=== PATIENT | female | born 1980 | race Caucasian/White ===

== ENCOUNTER 2017-02-07 12:11 | Emergency (ER) | payer MEDICAID ==
[2017-02-07] MEDS ORDERED: HYDROcod/ACETAM 5/325 MG TABLET PO STA (12:51)
[2017-02-07] MEDS ORDERED: diazePAM 5 MG TABLET PO STA (12:52)
[2017-02-07] MEDS ORDERED: diazePAM 5 MG TABLET PO ONE (12:56)
[2017-02-07] MEDS ORDERED: HYDROcod/ACETAM 5/325 MG TABLET ONE (12:56)
== END 2017-02-07 13:08 | disposition home or self-care (01) ==
DX: M54.5 Low back pain (principal); G89.29 Other chronic pain
CPT/HCPCS: 99283; A9270

== ENCOUNTER 2017-05-03 19:08 | Emergency (ER) | payer MEDICAID ==
[2017-05-03] MEDS ORDERED: HYDROcod/ACETAM 5/325 MG TABLET PO STA (19:39)
--- NOTE | 2017-05-03 19:40 | ED Physician Documentation ---
History of Present Illness - Stated complaint Stated Complaint: LT FOOT PX - Chief complaint Chief Complaint: General - History obtained from History obtained from: Patient - History of Present Illness Timing: Other (36-year-old woman stubbed her toe this evening and is unable to walk due to severe left great toe pain. No other injuries. 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 HEENT: Tonsil/Adenoidectomy - Present Medications Home Medications: Ambulatory Orders Medication Instructions Recorded Confirmed HYDROcod/ACETAM 5/325 [[place] 5/325] 1 tab PO TID PRN 08/17/15 05/03/17 - Allergies Allergies/Adverse Reactions: Allergies Allergy/AdvReac Type Severity Reaction Status Date / Time levofloxacin [From Levaquin] Allergy Unknown Verified 05/03/17 19:32 morphine Allergy Unknown Verified 05/03/17 19:32 - Social History Does the pt smoke?: No Smoking Status: Never smoker Does the pt drink ETOH?: No Does the pt have substance abuse?: Yes Substance Use and Type: Marijuana - Immunizations Immunizations are current?: Yes PD ED PE NORMAL - Vitals Vital signs reviewed: Yes - General General: Alert and oriented X 3, No acute distress - Extremities Extremities: Other (Quite tender to the MTP of the great toe without deformity. MVI.) - Neuro Neuro: Alert and oriented X 3, Normal speech - Psych Psych: Normal mood, Normal affect Results - Vitals Vitals: Vital Signs - 24 hr 05/03/17 19:12 Temperature 36.4 C L Heart Rate 84 Respiratory 16 Rate Blood Pressure 108/71 O2 Saturation 100 Oxygen O2 Source Room air - Rads (name of study) Toe XR Radiology: EMP read contemporaneously (negative) Departure - Departure Disposition: 01 Home, Self Care Clinical Impression: Sprain of toe, great, left Qualifiers: Encounter type: initial encounter Qualified Code(s): S93.502A - Unspecified sprain of left great toe, initial encounter Condition: Good Record reviewed to determine appropriate education?: Yes Instructions: ED Sprain Toe Comments: Recheck with your physician in 1 week if not better Forms: Activity restrictions
[2017-05-03] MEDS ORDERED: HYDROcod/ACETAM 5/325 MG TABLET ONE (19:41)
--- NOTE | 2017-05-03 20:16 | XRAY Preliminary Report ---
Exam: XR Toe(s) LT IMPRESSION: Normal toe radiography. [facility] SITE ID: [id number]
--- NOTE | 2017-05-03 20:19 | XRAY Report ---
EXAM: LEFT FIRST TOE RADIOGRAPHY EXAM DATE: 05/03/2017 08:08 PM. CLINICAL HISTORY: Toe inj. COMPARISON: None. TECHNIQUE: 3 views. FINDINGS: Bones: Normal. No fracture or bone lesion. Joints: Normal. No subluxations. Soft Tissues: Normal. No soft tissue swelling. IMPRESSION: Normal toe radiography. [facility] Referring Provider Line: [phone] SITE ID: [id number]
[2017-05-03] MEDS ORDERED: HYDROcod/ACET 5/325 Prepack 6 PO STA (20:28)
[2017-05-03] MEDS ORDERED: HYDROcod/ACET 5/325 Prepack 6 PO ONE (20:44)
[2017-05-03 20:53] VITALS: BP 101/69
== END 2017-05-03 20:47 | disposition home or self-care (01) ==
LOC: ED 19:08
DX: S93.502A Unspecified sprain of left great toe, initial encounter (principal); W22.8XXA Striking against or struck by other objects, initial encounter
CPT/HCPCS: 73660; 99283; A9270

== ENCOUNTER 2017-11-08 12:40 | Emergency (ER) | payer MEDICAID ==
[2017-11-08 12:53] VITALS: BP 116/67
--- NOTE | 2017-11-08 13:18 | ED Physician Documentation ---
PD HPI NECK PAIN - Stated complaint Stated Complaint: NECK PX - Chief complaint Chief Complaint: General - History obtained from History obtained from: Patient - History of Present Illness Timing - onset: Yesterday Timing - duration: Days (2) Timing - details: Gradual onset, Still present Location: Lower, Left Quality: Pain, Spasm Associated symptoms: Numbness (intermittently left back of arm to middle fingers. no edema.). No: Fever, Weakness, Incontinent of urine Worsened by: Movement (of neck and shoulder) Similar symptoms before: Diagnosis (neck pain from disc disease. Worse the past 2 days without obvius new injury.) Review of Systems Constitutional: denies: Fever, Chills Nose: denies: Rhinorrhea / runny nose, Congestion Throat: denies: Sore throat Respiratory: denies: Cough Skin: denies: Rash, Lesions Neurologic: reports: Numbness (at time down left arm/fingers). 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 HEENT: Tonsil/Adenoidectomy - Present Medications Home Medications: Ambulatory Orders Medication Instructions Recorded Confirmed HYDROcod/ACETAM 5/325 [[place] 5/325] 1 tab PO TID PRN 08/17/15 05/03/17 Methocarbamol [Robaxin] 500 mg PO Q6H PRN #25 tablet 11/08/17 Naproxen 375 mg PO BID #20 tablet 11/08/17 Oxycodone HCl/Acetaminophen 1 each PO Q6H PRN #20 tablet 11/08/17 [Percocet 5-325 mg Tablet] - Allergies Allergies/Adverse Reactions: Allergies Allergy/AdvReac Type Severity Reaction Status Date / Time levofloxacin [From Levaquin] Allergy Unknown Verified 11/08/17 12:53 morphine Allergy Unknown Verified 11/08/17 12:53 - Social History Does the pt smoke?: No Smoking Status: Never smoker Does the pt drink ETOH?: No Does the pt have substance abuse?: Yes - Immunizations Immunizations are current?: No PD ED PE NORMAL - Vitals Vital signs reviewed: Yes - General General: Alert and oriented X 3, Well developed/nourished - Neck Neck: Supple, no meningeal sign, No bony TTP, No adenopathy, Other (tender left lateral neck in muscle and in suprascapular area (trapezius muscle with firm spasm). No redness nor sores of skin. ) - Cardiac Cardiac: RRR, No murmur - Respiratory Respiratory: Clear bilaterally - Derm Derm: Normal color, Warm and dry, No rash - Neuro Neuro: Alert and oriented X 3, No motor deficit, Other (subjective less sensation to touch in left hand middle fingers. Normal color and cap refill. ) Results - Vitals Vitals: Vital Signs - 24 hr 11/08/17 12:51 Temperature 36.4 C L Heart Rate 74 Respiratory 20 Rate Blood Pressure 116/67 O2 Saturation 98 Oxygen O2 Source Room air PD MEDICAL DECISION MAKING - ED course Complexity details: considered differential (neck pain with some decreased sensation left arm but no weakness. Muscle spasm of trapezius could be causing it rather than disc. Did trigger point injection with Marcaine and Kenalog at point of muscle spasm mid suprascapular area. Otherwise no red flags for history. ), d/w patient Departure - Departure Disposition: 01 Home, Self Care Clinical Impression: Neck pain on left side, Trapezius muscle spasm, Cervical radiculitis Condition: Stable Record reviewed to determine appropriate education?: Yes Instructions: ED Neck Pain No Trauma, ED Cervical Radiculopathy Follow-Up: Erum Mercado ARNP [Primary Care Provider] - Prescriptions: Methocarbamol [Robaxin] 500 mg PO Q6H PRN #25 tablet PRN Reason: Spasms Naproxen 375 mg PO BID #20 tablet Oxycodone HCl/Acetaminophen [Percocet 5-325 mg Tablet] 1 each PO Q6H PRN #20 tablet PRN Reason: Pain Comments: Heat and gentle massage to the area to reduce spasming on the left side of the neck. Use naproxen twice daily for the next 7-10 days; take it with food so it does not bother her stomach. Use Robaxin muscle relaxant 3-4 times a day as needed for spasms. Hopefully the local injection with steroid and numbing medicine will decrease as spasm in reduce irritation. Add oxycodone if needed for pain. The "pinched nerve" symptoms may be coming from the discs themselves or could be from inflammation and muscle spasm as well. See how much that improves over the next several days to week or so. Follow-up with your primary care. Discharge Date/Time: 11/08/17 14:13
[2017-11-08] MEDS ORDERED: oxyCOD/ACETAMIN 5 MG/325 MG TABLET PO STA (13:23)
[2017-11-08] MEDS ORDERED: METHOCARBAMOL 500 MG TABLET PO STA (13:23)
[2017-11-08] MEDS ORDERED: IBUPROFEN 600 MG TABLET PO STA (13:23)
[2017-11-08] MEDS ORDERED: TRIAMCINOLONE 40 MG/ML VIAL IM STA (13:23)
== END 2017-11-08 14:13 | disposition home or self-care (01) ==
LOC: ED 12:40
DX: M54.2 Cervicalgia (principal); M62.838 Other muscle spasm; M54.12 Radiculopathy, cervical region
CPT/HCPCS: 96372; 99283; A9270

== ENCOUNTER 2017-11-16 12:24 | Emergency (ER) | payer MEDICAID ==
[2017-11-16] MEDS ORDERED: KETOROLAC 60 MG/2 ML VIAL IM STA (13:10)
[2017-11-16] MEDS ORDERED: LIDOCAINE PATCH 5% TOP STA (13:10)
[2017-11-16] MEDS ORDERED: HYDROcod/ACETAM 5/325 MG TABLET PO STA (13:10)
[2017-11-16 13:52] VITALS: BP 106/62
--- NOTE | 2017-11-16 14:11 | ED Physician Documentation ---
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, chronic slight numbness Leon bowden today was leaning over to stretch and coughed and aggravated the pain to her lower neck and upper back with spasm no new neuro sx pain is severe took her valium but not her vicodin Review of Systems Constitutional: denies: Fever Cardiac: denies: Chest pain / pressure GI: denies: Abdominal Pain Musculoskeletal: reports: Neck pain, Back pain Neurologic: denies: Focal weakness, Numbness (none new) PD PAST MEDICAL HISTORY - Past Medical History Past Medical History: Yes Cardiovascular: None Respiratory: None Neuro: None Endocrine/Autoimmune: None : Kidney stones Musculoskeletal: Chronic back pain - Past Surgical History 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, 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 HEENT: Tonsil/Adenoidectomy - Present Medications Home Medications: Ambulatory Orders Medication Instructions Recorded Confirmed HYDROcod/ACETAM 5/325 [[place] 5/325] 1 tab PO TID PRN 08/17/15 11/16/17 Diazepam [Valium] 1 tab PO BID 11/16/17 11/16/17 Ibuprofen [Motrin] 400 mg PO Q6H PRN #30 tablet 11/16/17 Lidocaine Patch 5% [Lidoderm Patch] 1 each TOP DAILY PRN #10 patch 11/16/17 - Allergies Allergies/Adverse Reactions: Allergies Allergy/AdvReac Type Severity Reaction Status Date / Time levofloxacin [From Levaquin] Allergy Unknown Verified 11/08/17 12:53 morphine Allergy Unknown Verified 11/08/17 12:53 - Social History Does the pt smoke?: No Smoking Status: Never smoker Does the pt drink ETOH?: No Does the pt have substance abuse?: Yes - Immunizations Immunizations are current?: No - POLST Patient has POLST: No PD ED PE NORMAL - Vitals Vital signs reviewed: Yes - Neck Neck: Supple, no meningeal sign, Other (soft tissue TTP lower neck no focal redness swelling warmth) - Cardiac Cardiac: RRR - Respiratory Respiratory: No respiratory distress, Clear bilaterally - Back Back: No spinal TTP (no focal redness swelling warmth) - Derm Derm: Normal color - Neuro Neuro: Alert and oriented X 3, clock assembler 2-12 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, No motor deficit, No sensory deficit Results - Vitals Vitals: Vital Signs - 24 hr 11/16/17 11/16/17 12:49 13:51 Temperature 36.8 C 37.0 C Heart Rate 86 70 Respiratory 20 20 Rate Blood Pressure 116/78 106/62 O2 Saturation 97 98 Oxygen O2 Source Room air PD MEDICAL DECISION MAKING - ED course ED course: better with toradol and lido patches to low neck region Departure - Departure Disposition: Home, Self Care Clinical Impression: Trapezius muscle spasm, Neck pain Back pain Qualifiers: Back pain location: back pain in other location Chronicity: chronic Qualified Code(s): M54.9 - Dorsalgia, unspecified; G89.29 - Other chronic pain; G89.29 - Other chronic pain Condition: Good Instructions: ED Neck Back Pain General Prescriptions: Ibuprofen [Motrin] 400 mg PO Q6H PRN #30 tablet PRN Reason: Pain Lidocaine Patch 5% [Lidoderm Patch] 1 each TOP DAILY PRN #10 patch PRN Reason: Pain Comments: Try the lidocaine patches and motrin Continue your valium and vicodin as needed for severe pain
== END 2017-11-16 14:18 | disposition home or self-care (01) ==
LOC: ED 12:24
DX: M62.838 Other muscle spasm (principal); M54.2 Cervicalgia; G89.29 Other chronic pain
CPT/HCPCS: 96372; 99283; A9270

== ENCOUNTER 2018-01-03 18:23 | Emergency (ER) | payer MEDICAID ==
--- NOTE | 2018-01-03 20:38 | ED Physician Documentation ---
History of Present Illness - Stated complaint Stated Complaint: BACK PX - Chief complaint Chief Complaint: General - History obtained from History obtained from: Patient, Family - History of Present Illness Timing: Chronic Pain level max: 8 Pain level now: 6 Improved by: rest Worsened by: movement - Additonal information Additional information: States has chronic back pain. Dx with degenerative disk disease several years ago. States normally the hydrocodone controls her pain, but has had increased pain over the past few days. She has no loss of bowel or bladder control. No fevers. No trauma. Has required oxycodone in the past. Toradol has also helped in the past. Review of Systems Ten Systems: 10 systems reviewed and negative Constitutional: denies: Fever, Chills Ears: denies: Ear pain Nose: denies: Rhinorrhea / runny nose, Congestion Cardiac: denies: Chest pain / pressure Respiratory: denies: Cough, Wheezing GI: denies: Abdominal Pain, Nausea, Vomiting, Diarrhea : denies: Now EGA Skin: denies: Rash Musculoskeletal: denies: Neck pain Neurologic: denies: Focal weakness, Numbness PD PAST MEDICAL HISTORY - Past Medical History Past Medical History: Yes Cardiovascular: None Respiratory: None Neuro: None Endocrine/Autoimmune: None : Kidney stones Musculoskeletal: Chronic back pain - Past Surgical 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, 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 HEENT: Tonsil/Adenoidectomy - Present Medications Home Medications: Ambulatory Orders Medication Instructions Recorded Confirmed HYDROcod/ACETAM 5/325 [[place] 5/325] 1 tab PO TID PRN 08/17/15 11/16/17 Diazepam [Valium] 1 tab PO BID 11/16/17 11/16/17 Meloxicam [Mobic] 15 mg PO DAILY PRN #20 tablet 01/03/18 Oxycodone HCl/Acetaminophen 1 - 2 each PO Q6H PRN #14 tablet 01/03/18 [Percocet 5-325 mg Tablet] - Allergies Allergies/Adverse Reactions: Allergies Allergy/AdvReac Type Severity Reaction Status Date / Time levofloxacin [From Levaquin] Allergy Unknown Verified 11/08/17 12:53 morphine Allergy Unknown Verified 01/03/18 18:31 - Social History Does the pt smoke?: No Smoking Status: Never smoker Does the pt drink ETOH?: No Does the pt have substance abuse?: Yes - Immunizations Immunizations are current?: No - POLST Patient has POLST: No PD ED PE NORMAL - Vitals Vital signs reviewed: Yes - General General: Alert and oriented X 3, No acute distress - HEENT HEENT: Moist mucous membranes - Neck Neck: Supple, no meningeal sign - Cardiac Cardiac: RRR - Respiratory Respiratory: No respiratory distress, Clear bilaterally - Abdomen Abdomen: Soft, Non tender, Non distended - Back Back: No spinal TTP, Other (Paraspinal spasm low lumbar. No midline tenderness. No tenderness to palpation or percussion midline) - Derm Derm: Warm and dry - Extremities Extremities: Normal ROM s pain, Other (normal bilateral lower extremity patellar and ankle jerk reflexes. Normal great toe extension bilaterally) - Neuro Neuro: Alert and oriented X 3 - Psych Psych: Normal mood, Normal affect Results - Vitals Vitals: Vital Signs - 24 hr 01/03/18 01/03/18 18:29 21:03 Temperature 36.6 C 36 C L Heart Rate 72 76 Respiratory 16 18 Rate Blood Pressure 106/60 119/75 O2 Saturation 99 97 Oxygen O2 Source Room air PD MEDICAL DECISION MAKING - ED course Complexity details: reviewed old records, considered differential (no cauda equina, no spinal epidural abscess, no fracture, no aortic dissection or evidence of aneursym rupture), d/w patient ED course: Patient is a 37-year-old female who presents to the emergency department with acute on chronic back pain. Given Toradol and Percocet here. Pain improved. Will prescribe a small amount of Percocet for home and follow-up closely with her doctor. We will also trial on meloxicam and see if this helps her. Patient counseled regarding signs and symptoms for which I believe and urgent re -evaluation would be necessary. Patient with good understanding of and agreement to plan and is comfortable going home at this time This document was made in part using voice recognition software. While efforts are made to proofread this document, sound alike and grammatical errors may occur. PDM P reviewed on her [facility] form. Appears to fill her prescriptions mainly from one provider. Only one another prescription from a provider other than her PCP. And not many ER visits. Departure - Departure Disposition: 01 Home, Self Care Clinical Impression: Acute exacerbation of chronic low back pain Condition: Good Instructions: ED Back Care Tips, ED Neck Back Pain General Follow-Up: Erum Mercado ARNP [Primary Care Provider] - Within 1 week Prescriptions: Meloxicam [Mobic] 15 mg PO DAILY PRN #20 tablet PRN Reason: pain Oxycodone HCl/Acetaminophen [Percocet 5-325 mg Tablet] 1 - 2 each PO Q6H PRN # 14 tablet PRN Reason: pain Comments: Return if you worsen. This should improve over the next few days. Make sure to follow-up with your doctor for your further medications. Discharge Date/Time: 01/03/18 21:13
[2018-01-03] MEDS ORDERED: oxyCOD/ACETAMIN 5 MG/325 MG TABLET PO STA (20:55)
[2018-01-03] MEDS ORDERED: KETOROLAC 60 MG/2 ML VIAL IM STA (20:55)
[2018-01-03 21:03] VITALS: BP 119/75
== END 2018-01-03 21:13 | disposition home or self-care (01) ==
LOC: ED 18:23
DX: M54.5 Low back pain (principal); G89.29 Other chronic pain
CPT/HCPCS: 96372; 99283; A9270

== ENCOUNTER 2018-01-11 14:32 | Emergency (ER) | payer MEDICAID ==
[2018-01-11] MEDS ORDERED: diphenhydrAMINE INJ 50 MG/ML VIAL IM STA (16:32)
[2018-01-11] MEDS ORDERED: PROMETHAZINE 25 MG/1 ML VIAL IM STA (16:32)
[2018-01-11] MEDS ORDERED: KETOROLAC 60 MG/2 ML VIAL IM STA (16:32)
[2018-01-11] MEDS ORDERED: predniSONE 20 MG TABLET PO STA (16:40)
--- NOTE | 2018-01-11 16:42 | ED Physician Documentation ---
History of Present Illness - Stated complaint Stated Complaint: HEADACHE/REDNESS ON FACE - Chief complaint Chief Complaint: Allergic Rx - History obtained from History obtained from: Patient, Family - History of Present Illness Timing: Today Pain level max: 8 Pain level now: 7 - Additonal information Additional information: Patient is a 37-year-old female presents to the emergency department to medical problems today, the first is a headache that started last night, this on the top of the head and is radiating down the back of her neck. Similar to prior headaches. Took a Percocet this morning without relief. Mild photophobia, mild nausea no vomiting. She is not . She also developed a rash on the face and arms today, mildly itchy. Has not taken anything for this. Does not recall any new soaps, detergents, lotions, pets, travel or medications. States that she felt mildly short of breath earlier but this feels better now. 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 HEENT: Tonsil/Adenoidectomy - Present Medications Home Medications: Ambulatory Orders Medication Instructions Recorded Confirmed HYDROcod/ACETAM 5/325 [[place] 5/325] 1 tab PO TID PRN 08/17/15 11/16/17 predniSONE [Prednisone] 40 mg PO DAILY #10 tablet 01/11/18 - Allergies Allergies/Adverse Reactions: Allergies Allergy/AdvReac Type Severity Reaction Status Date / Time levofloxacin [From Levaquin] Allergy Unknown Verified 01/11/18 14:41 morphine Allergy Unknown Verified 01/11/18 14:41 - Social History Does the pt smoke?: No Smoking Status: Never smoker Does the pt drink ETOH?: No Does the pt have substance abuse?: Yes - Immunizations Immunizations are current?: No - POLST Patient has POLST: No PD ED PE NORMAL - Vitals Vital signs reviewed: Yes - General General: Alert and oriented X 3, No acute distress, Well developed/nourished - HEENT HEENT: PERRL, Ears normal, Moist mucous membranes, Pharynx benign, Other ( Normal oropharyngeal exam. No stridor or wheezing) - Neck Neck: Supple, no meningeal sign, No bony TTP, No adenopathy, No JVD, No bruit - Cardiac Cardiac: RRR, Strong equal pulses - Respiratory Respiratory: No respiratory distress, Clear bilaterally - Abdomen Abdomen: Soft, Non tender, Non distended - Back Back: No spinal TTP - Derm Derm: Warm and dry, Other (Mild urticaria over the bilateral upper extremities and face.) - Neuro Neuro: Alert and oriented X 3, licensed prosthetist 2-12 intact, No motor deficit, No sensory deficit, Normal speech, Other (Normal cerebellar tests) - Psych Psych: Normal mood, Normal affect Results - Vitals Vitals: Vital Signs - 24 hr 01/11/18 01/11/18 14:38 16:56 Temperature 36.7 C 36.7 C Heart Rate 71 61 Respiratory 16 20 Rate Blood Pressure 104/61 107/66 O2 Saturation 99 100 Oxygen O2 Source Room air PD MEDICAL DECISION MAKING - ED course Complexity details: reviewed results, re-evaluated patient, considered differential (No subarachnoid hemorrhage, no tumor, no mass), d/w patient, d/w family ED course: Patient is a 37-year-old female who presents to the emergency department with urticaria of unclear etiology. She also had her usual headache, greatly improved with Toradol, Phenergan and Benadryl IM. Will place on steroids for home and follow-up with her doctor. No evidence of anaphylaxis. Patient counseled regarding signs and symptoms for which I believe and urgent re- evaluation would be necessary. Patient with good understanding of and agreement to plan and is comfortable going home at this time This document was made in part using voice recognition software. While efforts are made to proofread this document, sound alike and grammatical errors may occur. Departure - Departure Disposition: 01 Home, Self Care Clinical Impression: Urticaria Headache Qualifiers: Headache type: unspecified Headache chronicity pattern: acute headache Intractability: not intractable Qualified Code(s): R51 - Headache Condition: Good Instructions: ED Allergic Reaction General Other, ED Cephalgia Unspecified Follow-Up: Rogelio,[place] [facility], LEARNING ENGINEER [Primary Care Provider] - Within 1 week Prescriptions: predniSONE [Prednisone] 40 mg PO DAILY #10 tablet Comments: You can also use Benadryl at home as needed for the rash and itching. It is unclear what you are allergic to. Return if you worsen. Discharge Date/Time: 01/11/18 16:56
[2018-01-11 16:57] VITALS: BP 107/66
== END 2018-01-11 16:56 | disposition home or self-care (01) ==
LOC: ED 14:32
DX: L50.9 Urticaria, unspecified (principal); R51 Headache
CPT/HCPCS: 96372; 99282; 99283; J1200; J7512

== ENCOUNTER 2018-02-10 17:32 | Emergency (ER) | payer MEDICAID ==
[2018-02-10] MEDS ORDERED: KETOROLAC 60 MG/2 ML VIAL IM STA (17:59)
[2018-02-10] MEDS ORDERED: LIDOCAINE PATCH 5% TOP PRN (17:59)
--- NOTE | 2018-02-10 18:05 | ED Physician Documentation ---
History of Present Illness - Stated complaint Stated Complaint: BACK PX - Chief complaint Chief Complaint: Back Pain - Additonal information Additional information: hx from pt 37 f denies preg hx back problems has consult scheduled with [facility] aggravated back pain pain today is to mid T spine approx T6 no injury no fever no CP no cough no dyspnea no meds/drugs IV no recent dental work etc no abd pain no urinary sx no hematuria rosalind incont no numbness weakness (except LUE numbness which is not new and not related to her back pain today) tried her vicodin and valium s relief Review of Systems Constitutional: denies: Fever, Chills Cardiac: denies: Chest pain / pressure Respiratory: denies: Dyspnea, Cough GI: denies: Abdominal Pain : denies: Dysuria, Incontinent, Hematuria, Now EGA Musculoskeletal: reports: Back pain Neurologic: denies: Generalized weakness, Focal weakness, Numbness (none new) Endocrine: denies: Easy bruising / bleeding Immunocompromised: denies: Immunocompromised PD PAST MEDICAL HISTORY - Past Medical History Cardiovascular: None Respiratory: None Neuro: None Endocrine/Autoimmune: None : Kidney stones Musculoskeletal: Chronic back pain - Past Surgical History 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, 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 HEENT: Tonsil/Adenoidectomy - Present Medications Home Medications: Ambulatory Orders Medication Instructions Recorded Confirmed HYDROcod/ACETAM 5/325 [[place] 5/325] 1 tab PO TID PRN 08/17/15 11/16/17 Indomethacin [Indocin] 25 mg PO TIDWM PRN #15 capsule 02/10/18 Lidocaine Patch 5% [Lidoderm Patch] 1 each TOP DAILY PRN #10 patch 02/10/18 - Allergies Allergies/Adverse Reactions: Allergies Allergy/AdvReac Type Severity Reaction Status Date / Time levofloxacin [From Levaquin] Allergy Unknown Verified 02/10/18 17:41 morphine Allergy Unknown Verified 02/10/18 17:41 - Social History Does the pt smoke?: No Smoking Status: Never smoker Does the pt drink ETOH?: No Does the pt have substance abuse?: Yes - Immunizations Immunizations are current?: No - POLST Patient has POLST: No PD ED PE NORMAL - Vitals Vital signs reviewed: Yes - General General: Alert and oriented X 3 - HEENT HEENT: PERRL - Cardiac Cardiac: RRR - Respiratory Respiratory: No respiratory distress, Clear bilaterally - Abdomen Abdomen: Soft, Non tender, Other (no pulsatile mass) - Back Back: Other (focal TTP approx T56 but no redness swelling or warmth) - Neuro Neuro: Alert and oriented X 3, No motor deficit, No sensory deficit, Other ( denies saddle anesthesia, nl sensation, hip flex knee ext foot dorsi plantar great toe ext 5/5, no clonus, patellar DTR 1/4 bharat, + SLR bharat) Results - Vitals Vitals: Vital Signs - 24 hr 02/10/18 17:38 Temperature 36.9 C Heart Rate 73 Respiratory 16 Rate Blood Pressure 101/66 O2 Saturation 97 Oxygen O2 Source Room air PD MEDICAL DECISION MAKING - ED course ED course: acute exacerbation of chronic back pain with no s/sx to suggest AAA, epidural abscess, caude equina, etc will tx symptoms and dc to fup with [facility] [place] as planned Departure - Departure Disposition: 01 Home, Self Care Clinical Impression: Acute thoracic back pain Qualifiers: Back pain laterality: midline Qualified Code(s): M54.6 - Pain in thoracic spine Condition: Good Instructions: ED Neck Back Pain General Follow-Up: Erum Mercado ARNP [Primary Care Provider] - Prescriptions: Indomethacin [Indocin] 25 mg PO TIDWM PRN #15 capsule PRN Reason: Pain Lidocaine Patch 5% [Lidoderm Patch] 1 each TOP DAILY PRN #10 patch PRN Reason: Pain Comments: Try lidocaine patches and indocin for the pain. May also take your vicodin as needed for severe pain. Follow up with [facility] as planned Return if worse Forms: Activity restrictions
[2018-02-10 18:51] VITALS: BP 106/70
== END 2018-02-10 18:49 | disposition home or self-care (01) ==
LOC: ED 17:32
DX: M54.6 Pain in thoracic spine (principal)
CPT/HCPCS: 96372; 99283; A9270

== ENCOUNTER 2018-04-23 11:43 | Emergency (ER) | payer MEDICAID ==
[2018-04-23 11:49] VITALS: BP 107/54
--- NOTE | 2018-04-23 12:52 | ED Physician Documentation ---
PD HPI HEADACHE - Stated complaint Stated Complaint: HEADACHE - Chief complaint Chief Complaint: Heent - History obtained from History obtained from: Patient - History of Present Illness Timing - onset: How many weeks ago (2) Timing - onset during: Light activity Timing - duration: Weeks (2) Timing - details: Gradual onset, Still present, Waxing and waning Worst headache ever?: No: Worst headache ever? Location: Front, Other (sinuses area) Quality: Throbbing, Aching Associated symptoms: Other (runny nose and congestion, now with purulent drainage.). No: Fever, Nausea, Vomiting Contributing factors: Recent illness (uri symptoms vs allergy symptoms.) Review of Systems Constitutional: reports: Chills, Myalgias. denies: Fever Nose: reports: Rhinorrhea / runny nose, Congestion, Sinus pressure / pain Throat: reports: Sore throat Cardiac: denies: Chest pain / pressure, Palpitations Respiratory: reports: Cough. denies: Dyspnea GI: denies: Abdominal Pain, Nausea, Vomiting Skin: denies: Rash, Lesions Neurologic: reports: Headache (frontal sinus area). 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 HEENT: Tonsil/Adenoidectomy - Present Medications Home Medications: Ambulatory Orders Medication Instructions Recorded Confirmed HYDROcod/ACETAM 5/325 [[place] 5/325] 1 tab PO TID PRN 08/17/15 11/16/17 Cetirizine [ZyrTEC] 10 mg PO DAILY #20 tablet 04/23/18 Dexamethasone [Decadron] 4 mg PO DAILY #5 tablet 04/23/18 Doxycycline Monohydrate 100 mg PO BID #14 tablet 04/23/18 Oxycodone HCl/Acetaminophen 1 each PO Q6H PRN #15 tablet 04/23/18 [Percocet 5-325 mg Tablet] - Allergies Allergies/Adverse Reactions: Allergies Allergy/AdvReac Type Severity Reaction Status Date / Time levofloxacin [From Levaquin] Allergy Unknown Verified 04/23/18 11:47 morphine Allergy Unknown Verified 04/23/18 11:47 - Social History Does the pt smoke?: No Smoking Status: Never smoker Does the pt drink ETOH?: No Does the pt have substance abuse?: Yes - Immunizations Immunizations are current?: No - POLST Patient has POLST: No PD ED PE NORMAL - Vitals Vital signs reviewed: Yes - General General: Alert and oriented X 3, No acute distress, Well developed/nourished - HEENT HEENT: Atraumatic, Ears normal, Moist mucous membranes, Pharynx benign - Neck Neck: Supple, no meningeal sign, No adenopathy - Cardiac Cardiac: RRR, No murmur - Respiratory Respiratory: Clear bilaterally - Derm Derm: Normal color, No rash - Neuro Neuro: Alert and oriented X 3, No motor deficit, Normal speech Results - Vitals Vitals: Oxygen O2 Source Room air PD MEDICAL DECISION MAKING - ED course Complexity details: considered differential (sinus allergies vs. infection), d/ w patient - Sepsis Event Vital Signs: Oxygen O2 Source Room air Departure - Departure Disposition: 01 Home, Self Care Clinical Impression: Sinusitis, acute Qualifiers: Sinusitis location: unspecified location Recurrence: non-recurrent Qualified Code(s): J01.90 - Acute sinusitis, unspecified Condition: Stable Record reviewed to determine appropriate education?: Yes Instructions: ED Sinusitis Abx Tx Follow-Up: Erum Mercado, INVESTIGATIVE WRITER [Primary Care Provider] - Prescriptions: Cetirizine [ZyrTEC] 10 mg PO DAILY #20 tablet Dexamethasone [Decadron] 4 mg PO DAILY #5 tablet Doxycycline Monohydrate 100 mg PO BID #14 tablet Oxycodone HCl/Acetaminophen [Percocet 5-325 mg Tablet] 1 each PO Q6H PRN #15 tablet PRN Reason: Pain Comments: Drink lots of fluids. Continue usual medications. You could use some saline nasal spray for cleansing the nasal passage several times a day. Decadron steroid daily for 5 more days to decrease inflammation of the sinuses. Add cetirizine daily for 3 weeks. There may be some bacterial component based on your his description so we will add doxycycline antibiotic for a week. Recheck if not improving over the next several days. Add Percocet if needed for pain ( above your usual medications). Discharge Date/Time: 04/23/18 13:17
[2018-04-23] MEDS ORDERED: oxyCOD/ACETAMIN 5 MG/325 MG TABLET PO STA (13:04)
[2018-04-23] MEDS ORDERED: DOXYCYCLINE 100 MG TABLET PO STA (13:04)
[2018-04-23] MEDS ORDERED: DEXAMETHASONE 10 MG/ML VIAL PO STA (13:04)
== END 2018-04-23 13:17 | disposition home or self-care (01) ==
LOC: ED 11:43
DX: J01.90 Acute sinusitis, unspecified (principal)
CPT/HCPCS: 99283; A9270

== ENCOUNTER 2018-04-30 18:03 | Emergency (ER) | payer MEDICAID ==
[2018-04-30] MEDS ORDERED: cefTRIAXone 1 GM VIAL IM STA (18:44)
[2018-04-30] MEDS ORDERED: predniSONE 20 MG TABLET PO STA (18:44)
[2018-04-30] MEDS ORDERED: LIDOCAINE 1% 2 ML VIAL SUBQ ONE (18:44)
--- NOTE | 2018-04-30 18:47 | ED Physician Documentation ---
PD HPI HEENT - Stated complaint Stated Complaint: SINUS ISSUES - Chief complaint Chief Complaint: Heent - History obtained from History obtained from: Patient - History of Present Illness Timing - onset: Other (She is a week worth of frontal sinus pressure and congestion associated with headaches and fevers. She was seen here a week ago and started on doxycycline, she had an allergic reaction to that and she was switched over to Augmentin. I think there was some sort of misunderstanding she went to her doctor's office today and got another prescription for Augmentin which the pharmacy would not fill because she was already on it. 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 HEENT: Tonsil/Adenoidectomy - Present Medications Home Medications: Ambulatory Orders Medication Instructions Recorded Confirmed HYDROcod/ACETAM 5/325 [[place] 5/325] 1 tab PO TID PRN 08/17/15 11/16/17 Oxycodone HCl/Acetaminophen 1 each PO Q6H PRN #15 tablet 04/23/18 [Percocet 5-325 mg Tablet] Cefdinir 300 mg PO BID #20 capsule 04/30/18 predniSONE [Deltasone] 20 mg PO [id number] #21 tab 04/30/18 - Allergies Allergies/Adverse Reactions: Allergies Allergy/AdvReac Type Severity Reaction Status Date / Time levofloxacin [From Levaquin] Allergy Unknown Verified 04/23/18 11:47 morphine Allergy Unknown Verified 04/23/18 11:47 doxycycline AdvReac Severe Anaphylaxis Verified 04/30/18 18:21 - Social History Does the pt smoke?: No Smoking Status: Never smoker Does the pt drink ETOH?: No Does the pt have substance abuse?: Yes - Immunizations Immunizations are current?: No - POLST Patient has POLST: No PD ED PE NORMAL - Vitals Vital signs reviewed: Yes - General General: Alert and oriented X 3, No acute distress - HEENT HEENT: Other (Neck is supple, she has bilateral frontal sinus tenderness, oropharynx and TMs are normal.) - Neck Neck: Supple, no meningeal sign, No bony TTP - Neuro Neuro: Alert and oriented X 3, table games manager 2-12 intact Results - Vitals Vitals: Vital Signs - 24 hr 04/30/18 18:17 Temperature 36.3 C L Heart Rate 65 Respiratory 18 Rate Blood Pressure 107/78 O2 Saturation 98 Oxygen O2 Source Room air PD MEDICAL DECISION MAKING - ED course ED course: Amoxicillin and Augmentin were not used because she has already failed treatment with this. - Sepsis Event Vital Signs: Vital Signs - 24 hr 04/30/18 18:17 Temperature 36.3 C L Heart Rate 65 Respiratory 18 Rate Blood Pressure 107/78 O2 Saturation 98 Oxygen O2 Source Room air Departure - Departure Disposition: 01 Home, Self Care Clinical Impression: Sinusitis, acute Qualifiers: Sinusitis location: maxillary Recurrence: recurrent Qualified Code(s): J01.01 - Acute recurrent maxillary sinusitis Condition: Good Record reviewed to determine appropriate education?: Yes Instructions: ED Sinusitis Abx Tx Prescriptions: Cefdinir 300 mg PO BID #20 capsule predniSONE [Deltasone] 20 mg PO [id number] #21 tab Comments: Call your doctor to arrange a follow-up appointment, make the next available appointment. In the interim, return anytime if worse or if new symptoms develop.
[2018-04-30 19:34] VITALS: BP 109/80
== END 2018-04-30 19:32 | disposition home or self-care (01) ==
LOC: ED 18:03
DX: J01.01 Acute recurrent maxillary sinusitis (principal)
CPT/HCPCS: 96372; 99282; 99283; J7512

== ENCOUNTER 2018-07-02 12:00 | Emergency (ER) | payer MEDICAID ==
[2018-07-02 12:06] VITALS: BP 111/61
--- NOTE | 2018-07-02 12:28 | ED Physician Documentation ---
PD HPI UPPER EXT INJURY - Stated complaint Stated Complaint: LF SHOULD/ARM PX - Chief complaint Chief Complaint: Ext Problem - History obtained from History obtained from: Patient - History of Present Illness Location: Left, Shoulder Type of injury: Twist (lying on sofa with arm beside/under her head. Pain after getting up and with ROM. Feels stiff and painful for movmen. No redness nor rash.). No: Fall, Blunt / blow Where injury occurred: Home Timing - onset: Last night Timing - duration: Minutes, Hours Timing - details: Gradual onset, Still present, Waxing and waning Improved by: Rest Worsened by: No: Palpating Review of Systems Constitutional: denies: Fever, Chills, Myalgias Nose: denies: Rhinorrhea / runny nose, Congestion Throat: denies: Sore throat Respiratory: denies: Cough GI: denies: Nausea, Vomiting, Diarrhea Skin: denies: Rash, Lesions Neurologic: denies: Headache, Head injury PD PAST MEDICAL HISTORY - Past Medical History Cardiovascular: None Respiratory: None Endocrine/Autoimmune: None : Kidney stones Musculoskeletal: Chronic back pain - Past Surgical 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, 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 HEENT: Tonsil/Adenoidectomy - Present Medications Home Medications: Ambulatory Orders Medication Instructions Recorded Confirmed HYDROcod/ACETAM 5/325 [[place] 5/325] 1 tab PO TID PRN 08/17/15 11/16/17 Dexamethasone [Decadron] 4 mg PO DAILY #5 tablet 07/02/18 Diazepam [Valium] 10 mg BID PRN 07/02/18 07/02/18 Methocarbamol [Robaxin] 500 mg PO Q6H PRN #25 tablet 07/02/18 Naproxen 375 mg PO BID #20 tablet 07/02/18 - Allergies Allergies/Adverse Reactions: Allergies Allergy/AdvReac Type Severity Reaction Status Date / Time levofloxacin [From Levaquin] Allergy Unknown Verified 07/02/18 12:06 morphine Allergy Unknown Verified 07/02/18 12:06 doxycycline AdvReac Severe Anaphylaxis Verified 07/02/18 12:06 - Social History Does the pt smoke?: No Smoking Status: Never smoker Does the pt drink ETOH?: No Does the pt have substance abuse?: Yes - Immunizations Immunizations are current?: No - POLST Patient has POLST: No PD ED PE NORMAL - Vitals Vital signs reviewed: Yes - General General: Alert and oriented X 3, No acute distress, Well developed/nourished, Other - HEENT HEENT: Atraumatic, PERRL, EOMI - Neck Neck: Supple, no meningeal sign, No bony TTP, No adenopathy - Cardiac Cardiac: RRR, No murmur - Respiratory Respiratory: Clear bilaterally - Derm Derm: Warm and dry - Extremities Extremities: No deformity, No tenderness to palpate, Normal ROM s pain, No edema , No calf tenderness / cord - Neuro Neuro: Alert and oriented X 3, 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 I don' t see reason for xray. ), d/w patient - Sepsis Event Vital Signs: Oxygen O2 Source Room air Departure - Departure Disposition: 01 Home, Self Care Clinical Impression: Acute pain of left shoulder, Tendonitis of left rotator cuff Condition: Stable Record reviewed to determine appropriate education?: Yes Follow-Up: Erum Mercado ARNP [Primary Care Provider] - Prescriptions: Dexamethasone [Decadron] 4 mg PO DAILY #5 tablet Methocarbamol [Robaxin] 500 mg PO Q6H PRN #25 tablet PRN Reason: Spasms Naproxen 375 mg PO BID #20 tablet Comments: This sounds like some inflammation irritation of the rotator cuff mainly. There may be some element of spasms in the shoulder girdle as well. Use a sling to help support the shoulder for the next few days with gentle range of motion of the shoulder several times a day to reduce stiffening. Use anti- inflammatories such as naproxen or ibuprofen 2-3 times a day for the next several days. Add Decadron steroid anti-inflammatory as well daily for 5 more days. Continue usual pain medications. Add Robaxin muscle relaxant if needed for spasms. Recheck if not improving over the next few days. Discharge Date/Time: 07/02/18 13:13
[2018-07-02] MEDS ORDERED: oxyCODONE 5 MG TABLET PO STA (12:45)
[2018-07-02] MEDS ORDERED: NAPROXEN 250 MG TABLET PO STA (12:45)
[2018-07-02] MEDS ORDERED: DEXAMETHASONE 10 MG/ML VIAL PO STA (12:48)
[2018-07-02] MEDS ORDERED: METHOCARBAMOL 500 MG TABLET PO STA (12:49)
[2018-07-02] MEDS ORDERED: CHERRY SYRUP 10 ML UDC PO ONE (12:53)
== END 2018-07-02 13:13 | disposition home or self-care (01) ==
LOC: ED 12:00
DX: M25.512 Pain in left shoulder (principal); M75.102 Unspecified rotator cuff tear or rupture of left shoulder, not specified as traumatic
CPT/HCPCS: 99283; A9270

== ENCOUNTER 2018-08-07 11:09 | Outpatient (CLI) | payer MEDICAID ==
--- NOTE | 2018-08-07 16:21 | CT Report ---
Reason: BL FLANK PAIN Procedure Date: 08/07/2018 Accession Number: [id number] / [id number] Procedure: CT - Abdomen/Pelvis W/O CPT Code: FULL RESULT: EXAM: CT ABDOMEN AND PELVIS EXAM DATE: 08/07/2018 11:34 AM. CLINICAL HISTORY: Bilateral flank pain. COMPARISONS: Abdomen/pelvis W/O 08/17/2015 7:38 PM. TECHNIQUE: Routine helical CT imaging was performed through the abdomen and pelvis. IV contrast: . Enteric contrast: No. Reconstructions: Coronal and sagittal. In accordance with CT protocol optimization, one or more of the following dose reduction techniques were utilized for this exam: automated exposure control, adjustment of mA and/or KV based on patient size, or use of iterative reconstructive technique. FINDINGS: Lung Bases: Unremarkable. Liver: Normal. No masses. Gallbladder/Bile Ducts: Unremarkable. Spleen: Normal. Pancreas: Normal. Adrenal Glands: Normal. Kidneys: A sub-3 mm calcification in the left kidney likely represents a nonobstructing renal calculus. No hydronephrosis or obstructing renal calculi on either side. Peritoneal Cavity/Bowel: Normal. No free fluid, free air or adenopathy. No masses or acute inflammatory process. The appendix is well visualized and normal. Pelvic Organs: Normal. The bladder and visualized pelvic organs are within normal limits. Vasculature: No aneurysms or other significant abnormality. Bones: No significant abnormality. Other: None. IMPRESSION: Suspect sub-3 mm nonobstructing left renal calculus. No hydronephrosis. RADIA
== END 2018-08-07 11:10 | disposition home or self-care (01) ==
LOC: DI 11:09
PROVIDERS: ATTEND Nurse Practitioner Family
DX: R10.9 Unspecified abdominal pain (principal); Z87.442 Personal history of urinary calculi
CPT/HCPCS: 74176

== ENCOUNTER 2018-08-15 10:00 | Emergency (ER) | payer MEDICAID ==
--- NOTE | 2018-08-15 11:37 | ED Physician Documentation ---
PD HPI HEADACHE - Stated complaint Stated Complaint: HEADACHE - Chief complaint Chief Complaint: Neuro - History obtained from History obtained from: Patient - History of Present Illness Timing - onset: How many days ago (3) Timing - onset during: Rest Timing - duration: Days (3) Timing - details: Abrupt onset, Still present Location: Front Quality: Throbbing Associated symptoms: Stiff neck, Nausea, Vomiting. No: Fever Improved by: Rest, Dark room, Quiet, Meds Worsened by: Light, Noise, Moving Contributing factors: No: Anticoagulated Similar symptoms before: Diagnosis (headache) Recently seen: Not recently seen - Additional information Additional information: 37-year-old female has developed a headache that started about 3 days ago while she was sitting at her computer. She describes a headache as starting in the back of her neck and radiating forward. She has some throbbing in the front. She has developed some nausea vomiting and dizziness associated with this. She has had a headache present for the past 3 days. She does note that she had some wavy lines of light prior to the onset of symptoms. Review of Systems Constitutional: denies: Fever Eyes: reports: Photophobia. denies: Decreased vision Ears: denies: Ear pain Nose: reports: Rhinorrhea / runny nose, Congestion Throat: denies: Sore throat Cardiac: denies: Chest pain / pressure, Palpitations Respiratory: denies: Dyspnea, Cough GI: denies: Nausea, Vomiting : denies: Dysuria, Frequency Skin: denies: Rash Musculoskeletal: reports: Neck pain. 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 HEENT: Tonsil/Adenoidectomy - Present Medications Home Medications: Ambulatory Orders Medication Instructions Recorded Confirmed HYDROcod/ACETAM 5/325 [[place] 5/325] 1 tab PO TID PRN 08/17/15 11/16/17 Diazepam [Valium] 10 mg BID PRN 07/02/18 07/02/18 - Allergies Allergies/Adverse Reactions: Allergies Allergy/AdvReac Type Severity Reaction Status Date / Time levofloxacin [From Levaquin] Allergy Unknown Verified 08/15/18 10:13 morphine Allergy Unknown Verified 08/15/18 10:13 doxycycline AdvReac Severe Anaphylaxis Verified 08/15/18 10:13 - Social History Does the pt smoke?: No Smoking Status: Never smoker Does the pt drink ETOH?: No Does the pt have substance abuse?: Yes - Immunizations Immunizations are current?: No - POLST Patient has POLST: No PD ED PE NORMAL - Vitals Vital signs reviewed: Yes (normal ) - General General: Alert and oriented X 3, No acute distress, Well developed/nourished - HEENT HEENT: Atraumatic, PERRL, EOMI, Ears normal, Other (dry mucous membranes ) - Neck Neck: Supple, no meningeal sign, No bony TTP, Other (There is some spasm to the trapezius at the insertion to the occiput. 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, No motor deficit, No sensory deficit, Normal speech Eye Opening: Spontaneous Motor: Obeys Commands Verbal: Oriented GCS Score: 15 - Psych Psych: Normal mood, Normal affect Results - Vitals Vitals: Vital Signs - 24 hr 08/15/18 08/15/18 08/15/18 10:11 10:46 12:42 Temperature 36.2 C L 36.9 C Heart Rate 70 71 65 Respiratory 16 16 14 Rate Blood Pressure 111/77 101/64 96/57 L O2 Saturation 99 100 100 Oxygen O2 Source Room air - Labs Labs: Laboratory Tests 08/15/18 08/15/18 12:01 12:01 WBC 7.9 RBC 4.58 Hgb 14.5 Hct 42.3 MCV 92.3 MCH 31.7 H MCHC 34.3 RDW 13.0 Plt Count 312 MPV 8.4 Neut # (Auto) 5.2 Lymph # (Auto) 1.6 [place] # (Auto) 0.5 Eos # (Auto) 0.4 Baso # (Auto) 0.1 Absolute Nucleated RBC 0.01 Nucleated RBC % 0.1 Sodium 140 Potassium 4.0 Chloride 105 Carbon Dioxide 27 Anion Gap 8.0 BUN 8 Creatinine 0.7 Estimated GFR (MDRD) 94 Glucose 100 Calcium 8.8 Total Bilirubin 0.7 AST 16 ALT 14 Alkaline Phosphatase 53 Total Protein 7.3 Albumin 4.0 Globulin 3.3 Albumin/Globulin Ratio 1.2 Lipase 34 PD MEDICAL DECISION MAKING - ED course Complexity details: reviewed old records, reviewed results, re-evaluated patient, considered differential, d/w patient ED course: 37-year-old female with a 3-day headache with what sounds like an aura prior to the onset of the symptoms has had some nausea and vomiting associated with this and she is dehydrated. She is also dizzy. She is administered a cocktail of i ntravenous saline Compazine Benadryl Toradol and dexamethasone. Departure - Departure Disposition: 01 Home, Self Care Clinical Impression: Migraine Qualifiers: Migraine type: with aura Status migrainosus presence: without status migrainosus Intractability: not intractable Qualified Code(s): G43.109 - Migraine with aura, not intractable, without status migrainosus Instructions: ED Headache Migraine Follow-Up: Erum Mercado ARNP [Primary Care Provider] -
[2018-08-15] MEDS ORDERED: DEXAMETHASONE 10 MG/ML VIAL IVP STA (11:43)
[2018-08-15] MEDS ORDERED: SODIUM CHLORIDE 0.9% 1,000 ML IV ONE (11:43)
[2018-08-15] MEDS ORDERED: diphenhydrAMINE INJ 50 MG/ML VIAL IVP STA (11:43)
[2018-08-15] MEDS ORDERED: KETOROLAC 60 MG/2 ML VIAL IVP STA (11:43)
[2018-08-15] MEDS ORDERED: PROCHLORPERAZINE 10 MG/2 ML VIAL IVP STA (11:44)
[2018-08-15 12:07] LABS: BASOPHILS # (AUTO) 0.1 10^3/uL (0.0-0.1); BASOPHILS % (AUTO) 1.2 %; EOSINOPHILS # (AUTO) 0.4 10^3/uL (0.0-0.7); EOSINOPHILS % (AUTO) 4.6 %; HGB - HEMOGLOBIN 14.5 g/dL (12.0-16.0); LYMPHOCYTES # (AUTO) 1.6 10^3/uL (1.5-3.5); LYMPHOCYTES % (AUTO) 20.8 %; MEAN CORPUSCULAR HEMOGLOBIN 31.7 pg (27.0-31.0); MEAN CORPUSCULAR HGB CONC 34.3 g/dL (32.0-36.0); MEAN CORPUSCULAR VOLUME 92.3 fL (81.0-99.0); MEAN PLATELET VOLUME 8.4 fL (7.9-10.8); MONOCYTES # (AUTO) 0.5 10^3/uL (0.0-1.0); MONOCYTES % (AUTO) 6.9 %; NEUTROPHILS # (AUTO) 5.2 10^3/uL (1.5-6.6); NEUTROPHILS % (AUTO) 66.5 %; PLT - PLATELET COUNT 312 10^3/uL (130-450); RED BLOOD COUNT 4.58 10^6/uL (4.20-5.40); WHITE BLOOD COUNT 7.9 x10^3/uL (4.8-10.8)
[2018-08-15 12:22] LABS: ALBUMIN/GLOBULIN RATIO 1.2 (1.0-2.2); BILIRUBIN,TOTAL 0.7 mg/dL (0.2-1.0); CALCIUM 8.8 mg/dL (8.5-10.3); CREATININE 0.7 mg/dL (0.4-1.0); TOTAL PROTEIN 7.3 g/dL (6.7-8.2)
[2018-08-15 13:05] VITALS: BP 110/55
== END 2018-08-15 13:12 | disposition home or self-care (01) ==
LOC: ED 10:00
DX: G43.109 Migraine with aura, not intractable, without status migrainosus (principal); E86.0 Dehydration
CPT/HCPCS: 36415; 80053; 83690; 85025; 96361; 96374; 96375; 99284; J1200; 81001; 81003; 81025; 87086

== ENCOUNTER 2019-01-04 11:06 | Emergency (ER) | payer MEDICAID ==
[2019-01-04] MEDS ORDERED: KETOROLAC 30 MG/ML VIAL IVP STA (12:27)
[2019-01-04] MEDS ORDERED: SODIUM CHLORIDE 0.9% 1,000 ML IV ONE (12:27)
[2019-01-04] MEDS ORDERED: diphenhydrAMINE INJ 50 MG/ML VIAL IVP STA (12:27)
[2019-01-04] MEDS ORDERED: METOCLOPRAMIDE 10 MG/2 ML VIAL IVP STA (12:27)
[2019-01-04] MEDS ORDERED: DEXAMETHASONE 10 MG/ML VIAL IVP STA (12:27)
[2019-01-04] MEDS ORDERED: cephALEXin 250 MG CAPSULE PO STA (12:29)
[2019-01-04 13:02] LABS: BASOPHILS % (AUTO) 0.7 %; EOSINOPHILS # (AUTO) 0.3 10^3/uL (0.0-0.7); EOSINOPHILS % (AUTO) 4.4 %; HGB - HEMOGLOBIN 13.5 g/dL (12.0-16.0); LYMPHOCYTES # (AUTO) 1.6 10^3/uL (1.5-3.5); LYMPHOCYTES % (AUTO) 23.8 %; MEAN CORPUSCULAR HEMOGLOBIN 31.8 pg (27.0-31.0); MEAN CORPUSCULAR HGB CONC 34.6 g/dL (32.0-36.0); MEAN CORPUSCULAR VOLUME 91.8 fL (81.0-99.0); MONOCYTES # (AUTO) 0.6 10^3/uL (0.0-1.0); MONOCYTES % (AUTO) 9.1 %; NEUTROPHILS # (AUTO) 4.2 10^3/uL (1.5-6.6); PLT - PLATELET COUNT 275 10^3/uL (130-450); RED BLOOD COUNT 4.26 10^6/uL (4.20-5.40); WHITE BLOOD COUNT 6.8 x10^3/uL (4.8-10.8)
[2019-01-04 13:13] LABS: ALBUMIN/GLOBULIN RATIO 1.1 (1.0-2.2); BILIRUBIN,TOTAL 0.6 mg/dL (0.2-1.0); CALCIUM 8.7 mg/dL (8.5-10.3); CREATININE 0.7 mg/dL (0.4-1.0); TOTAL PROTEIN 7.6 g/dL (6.7-8.2)
--- NOTE | 2019-01-04 13:47 | ED Physician Documentation ---
PD HPI HEADACHE - Stated complaint Stated Complaint: BUTT - Chief complaint Chief Complaint: Neuro - History obtained from History obtained from: Patient - History of Present Illness Timing - onset: How many months ago (has had varying degrees of headache, frontal area, with congestion as well. Has had 2 courses of abx with improvement temporary. Had been to PCP and is getting approval for MRI due to general headache as well. No ENT referral. Now with few days of purulent discharge. ALso with mgiraine type headache today.) Timing - details: Gradual onset, Still present Worst headache ever?: No: Worst headache ever? Quality: Throbbing Associated symptoms: Nausea, Eye pain. No: Fever, Vomiting, Weakness, Numbness Worsened by: Light (today's headache is, but ongoing headache is not), Noise Contributing factors: No: Hypertension, Recent illness, Trauma Similar symptoms before: Diagnosis (ongoing headache for 3 months, ? sinus. and history of intermittent migraines.) Recently seen: Clinic Review of Systems Constitutional: denies: Fever Nose: reports: Congestion, Sinus pressure / pain (with purulent drainage the past few days). denies: Rhinorrhea / runny nose Throat: denies: Sore throat Respiratory: denies: Cough GI: reports: Nausea. denies: Vomiting Neurologic: reports: Headache. 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 HEENT: Tonsil/Adenoidectomy - Present Medications Home Medications: Ambulatory Orders Medication Instructions Recorded Confirmed HYDROcod/ACETAM 5/325 [[place] 5/325] 1 tab PO TID PRN 08/17/15 11/16/17 Diazepam [Valium] 10 mg BID PRN 07/02/18 07/02/18 Cephalexin [Keflex] 500 mg PO Q6H #28 capsule 01/04/19 Cetirizine [ZyrTEC] 10 mg PO DAILY #15 tablet 01/04/19 Dexamethasone [Decadron] 4 mg PO DAILY #5 tablet 01/04/19 Ondansetron Odt [Zofran] 4 mg TL Q6H PRN #10 tablet 01/04/19 - Allergies Allergies/Adverse Reactions: Allergies Allergy/AdvReac Type Severity Reaction Status Date / Time levofloxacin [From Levaquin] Allergy Unknown Verified 08/15/18 10:13 morphine Allergy Unknown Verified 08/15/18 10:13 doxycycline AdvReac Severe Anaphylaxis Verified 01/04/19 11:13 - Social History Does the pt smoke?: No Smoking Status: Never smoker Does the pt drink ETOH?: No Does the pt have substance abuse?: Yes - Immunizations Immunizations are current?: No - POLST Patient has POLST: No PD ED PE NORMAL - Vitals Vital signs reviewed: Yes - General General: Alert and oriented X 3, Well developed/nourished, Other (appears uncomfortable, with some light sensitive) - HEENT HEENT: Ears normal, Pharynx benign, Other (frontal sinus tender to percussion. Right maxillary too.) - Neck Neck: Supple, no meningeal sign, No adenopathy - Cardiac Cardiac: RRR, No murmur - Respiratory Respiratory: Clear bilaterally - Abdomen Abdomen: Soft, Non tender - Derm Derm: Normal color, Warm and dry - Extremities Extremities: No tenderness to palpate, Normal ROM s pain - Neuro Neuro: Alert and oriented X 3, meter maker 2-12 intact, No motor deficit, No sensory deficit, Normal speech Eye Opening: Spontaneous Motor: Obeys Commands Verbal: Oriented GCS Score: 15 - Psych Psych: Normal mood, Normal affect Results - Vitals Vitals: Oxygen O2 Source Room air - Labs Labs: Laboratory Tests 01/04/19 01/04/19 01/04/19 12:37 12:37 12:37 WBC 6.8 RBC 4.26 Hgb 13.5 Hct 39.1 MCV 91.8 MCH 31.8 H MCHC 34.6 RDW 13.0 Plt Count 275 MPV 8.0 Neut # (Auto) 4.2 Lymph # (Auto) 1.6 [place] # (Auto) 0.6 Eos # (Auto) 0.3 Baso # (Auto) 0.0 Absolute Nucleated RBC 0.00 Nucleated RBC % 0.0 ESR 15 Sodium 138 Potassium 3.8 Chloride 106 Carbon Dioxide 25 Anion Gap 7.0 BUN 9 Creatinine 0.7 Estimated GFR (MDRD) 94 Glucose 87 Calcium 8.7 Total Bilirubin 0.6 AST 13 ALT 16 Alkaline Phosphatase 45 Total Protein 7.6 Albumin 4.0 Globulin 3.6 Albumin/Globulin Ratio 1.1 Lipase 33 PD MEDICAL DECISION MAKING - ED course Complexity details: re-evaluated patient (improved headache with meds targeted to migraine. ), considered differential (seems sinusitis, but with some element of migraine now today), d/w patient Departure - Departure Disposition: 01 Home, Self Care Clinical Impression: Migraine Qualifiers: Migraine type: without aura Status migrainosus presence: without status migrainosus Intractability: not intractable Qualified Code(s): G43.009 - Migraine without aura, not intractable, without status migrainosus Sinusitis Qualifiers: Sinusitis location: frontal Chronicity: acute Recurrence: recurrent Qualified Code(s): J01.11 - Acute recurrent frontal sinusitis Condition: Stable Record reviewed to determine appropriate education?: Yes Instructions: ED Headache Migraine, ED Sinusitis Abx Tx Follow-Up: Erum Mercado ARNP [Primary Care Provider] - Prescriptions: Cephalexin [Keflex] 500 mg PO Q6H #28 capsule Cetirizine [ZyrTEC] 10 mg PO DAILY #15 tablet Dexamethasone [Decadron] 4 mg PO DAILY #5 tablet Ondansetron Odt [Zofran] 4 mg TL Q6H PRN #10 tablet PRN Reason: Nausea / Vomiting Comments: Stay well-hydrated. Ondansetron if needed for nausea. Does sound like to have some sinus infection recurrently and active now so we will treat with cephalexin antibiotic and Decadron steroid. Use some saline nose spray frequently both nostrils to help open the sinus passageway. Follow-up with your primary care regarding further evaluation and treatment. Forms: Activity restrictions Discharge Date/Time: 01/04/19 14:36
[2019-01-04 14:36] VITALS: BP 102/57
== END 2019-01-04 14:36 | disposition home or self-care (01) ==
LOC: ED 11:06
DX: G43.009 Migraine without aura, not intractable, without status migrainosus (principal); J01.11 Acute recurrent frontal sinusitis
CPT/HCPCS: 36415; 80053; 83690; 85025; 85651; 96374; 96375; 99283; 99284; A9270; J1200; J2765

== ENCOUNTER 2019-01-17 15:57 | Emergency (ER) | payer MEDICAID ==
[2019-01-17] MEDS ORDERED: MECLIZINE 12.5 MG TABLET PO STA (16:45)
[2019-01-17] MEDS ORDERED: ONDANSETRON ODT 4 MG TABLET TL STA (16:46)
--- NOTE | 2019-01-17 17:09 | ED Physician Documentation ---
History of Present Illness - Stated complaint Stated Complaint: VERTIGO - Chief complaint Chief Complaint: Neuro - History obtained from History obtained from: Patient - Additonal information Additional information: The patient is a 38-year-old female who presents with vertigo that has been waxing and waning for the past year, but more noticeable during the past week. She has been slurring her words, and has been unsteady when walking, with her stating it is "like she is drunk." She reports headache that is both frontal as well as occipital, describing the occipital portion as "pressure." She reports nausea, without vomiting. She denies fever, visual disturbance, cough or shortness of breath, dysuria, numbness or weakness. She has been using sublingual nitroglycerin for nausea. She was seen here 10 days ago with headache and vertigo. She was treated for migraine and sinusitis at that time. She states that over the past year she has been treated multiple times for suspected sinus infection. Review of Systems Constitutional: reports: Other (dizziness). denies: Fever Eyes: denies: Decreased vision, Photophobia Ears: denies: Tinnitus/ringing Nose: denies: Congestion Throat: denies: Sore throat Cardiac: denies: Chest pain / pressure, Palpitations Respiratory: denies: Dyspnea, Cough GI: reports: Nausea. denies: Abdominal Pain, Vomiting : denies: Dysuria Skin: denies: Rash Musculoskeletal: denies: Neck pain, Extremity pain Neurologic: reports: Headache. 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 HEENT: Tonsil/Adenoidectomy - Present Medications Home Medications: Ambulatory Orders Medication Instructions Recorded Confirmed HYDROcod/ACETAM 5/325 [[place] 5/325] 1 tab PO TID PRN 08/17/15 11/16/17 Diazepam [Valium] 10 mg BID PRN 07/02/18 07/02/18 Cetirizine [ZyrTEC] 10 mg PO DAILY #15 tablet 01/04/19 Ondansetron Odt [Zofran] 4 mg TL Q6H PRN #10 tablet 01/04/19 Meclizine HCl [Motion Sickness 25 mg PO Q6HR PRN #20 tablet 01/17/19 Relief] - Allergies Allergies/Adverse Reactions: Allergies Allergy/AdvReac Type Severity Reaction Status Date / Time levofloxacin [From Levaquin] Allergy Unknown Verified 01/17/19 16:04 morphine Allergy Unknown Verified 01/17/19 16:04 doxycycline AdvReac Severe Anaphylaxis Verified 01/17/19 16:04 - Social History Does the pt smoke?: No Smoking Status: Never smoker Does the pt drink ETOH?: No Does the pt have substance abuse?: No - Immunizations Immunizations are current?: Yes - POLST Patient has POLST: No PD ED PE NORMAL - Vitals Vital signs reviewed: Yes (normal) - General General: Alert and oriented X 3, Well developed/nourished - HEENT HEENT: Atraumatic, PERRL, EOMI, Ears normal, Pharynx benign, Other (Fundi with sharp disc margins, without papilledema. No nystagmus.) - Neck Neck: Supple, no meningeal sign, No adenopathy - Cardiac Cardiac: RRR, No murmur - Respiratory Respiratory: No respiratory distress, Clear bilaterally - Abdomen Abdomen: Soft, Non tender - Back Back: No CVA TTP - Derm Derm: No rash - Extremities Extremities: No edema, No calf tenderness / cord - Neuro Neuro: Alert and oriented X 3, No motor deficit, No sensory deficit, Normal spe ech Results - Vitals Vitals: Vital Signs - 24 hr 01/17/19 16:02 Temperature 36.8 C Heart Rate 83 Respiratory 18 Rate Blood Pressure 99/59 L O2 Saturation 99 Oxygen O2 Source Room air - Rads (name of study) Head CT Radiology: Prelim report reviewed, EMP read contemporaneously, See rad report (No acute intracranial CT abnormality. There is mild sphenoid sinusitis.) PD MEDICAL DECISION MAKING - ED course Complexity details: reviewed old records, reviewed results, re-evaluated patient, considered differential, d/w patient, d/w family ED course: The patient's presentation is most consistent with diagnosis of peripheral vertigo. Central source for vertigo was considered, given the description of slurred speech and unsteady gait. There was no specific focality or ataxia demonstrated on physical exam, and head CT reveals no acute intracranial abnormality. The radiologist did describe mild sphenoid sinusitis, although it is questionable whether that would cause her symptoms. Treatment in the emergency department included administration of meclizine 25 mg orally, and Zofran 4 mg sublingually. Her symptoms improved with the above treatment. She is being discharged with prescriptions for meclizine and for Zofran. I discussed with her and her the results of her workup, symptomatic treatment and outpatient follow-up, as well as potentially worrisome signs or symptoms that should prompt reevaluation in the emergency department. Departure - Departure Disposition: Home, Self Care Clinical Impression: Peripheral vertigo, unspecified Qualifiers: Laterality: unspecified laterality Qualified Code(s): H81.399 - Other peripheral vertigo, unspecified ear Condition: Stable Instructions: ED Vertigo Unspecified Follow-Up: Erum Mercado ARNP [Primary Care Provider] - Prescriptions: Meclizine HCl [Motion Sickness Relief] 25 mg PO Q6HR PRN #20 tablet PRN Reason: Dizziness Comments: You can use meclizine as prescribed if needed for dizziness. You can use Zofran as prescribed if needed for nausea. Follow-up with your primary physician within 1-2 weeks. Call to schedule appointment. Return to the emergency department if you develop increasing headache, increasing dizziness, persistent vomiting, or otherwise worsening symptoms.
--- NOTE | 2019-01-17 18:01 | CT Report ---
Reason: dizziness Procedure Date: 01/17/2019 Accession Number: [id number] / [id number] Procedure: CT - HEAD WO CPT Code: FULL RESULT: EXAM: CT HEAD EXAM DATE: 01/17/2019 05:30 PM. CLINICAL HISTORY: Dizziness. COMPARISON: None. TECHNIQUE: Multiaxial CT images were obtained from the foramen magnum to the vertex. Reformats: Sagittal and coronal. IV contrast: None. In accordance with CT protocol optimization, one or more of the following dose reduction techniques were utilized for this exam: automated exposure control, adjustment of mA and/or KV based on patient size, or use of iterative reconstructive technique. FINDINGS: Parenchyma: No intraparenchymal hemorrhage. No evidence of mass, midline shift, or CT findings of infarction. Aguilera-white differentiation is distinct. Extraaxial Spaces: Normal for age. No subdural or epidural collections identified. Ventricles: Normal in size and position. Sinuses and Orbits: There is mild sphenoid sinusitis. Bones: No evidence of fracture or calvarial defect. Other: None. IMPRESSION: 1. No acute intracranial CT abnormality. 2. There is mild sphenoid sinusitis. RADIA
[2019-01-17 18:20] VITALS: BP 97/58
== END 2019-01-17 18:18 | disposition home or self-care (01) ==
LOC: ED 15:57
DX: H81.399 Other peripheral vertigo, unspecified ear (principal)
CPT/HCPCS: 70450; 99283; A9270; Q0162

== ENCOUNTER 2019-03-14 12:58 | Emergency (ER) | payer MEDICAID ==
[2019-03-14 13:05] VITALS: BP 104/63
[2019-03-14 13:22] LABS: BILIRUBIN,URINE NEGATIVE (NEGATIVE); GLUCOSE, URINE (UA) NEGATIVE (NEGATIVE); KETONES,URINE (UA) NEGATIVE (NEGATIVE); LEUKOCYTE ESTERASE, URINE NEGATIVE (NEGATIVE); NITRITE,URINE NEGATIVE (NEGATIVE); OCCULT BLOOD,URINE SMALL (NEGATIVE); PH,URINE 6.5 PH (5.0-7.5); PROTEIN,URINE NEGATIVE (NEGATIVE); UROBILINOGEN,URINE 0.2 (NORMAL) E.U./dL (NORMAL)
[2019-03-14 13:26] LABS: CLARITY,URINE CLEAR (CLEAR)
[2019-03-14 13:34] LABS: BACTERIA,URINE None Seen /HPF (None Seen); MUCUS,URINE Few Strands; RBC,URINE 0-5 /HPF (0-5); SQUAMOUS EPITHELIAL CELL,UR FEW Squamous (<= Few)
[2019-03-14] MEDS ORDERED: PHENAZOPYRIDINE 100 MG TABLET PO STA (14:58)
--- NOTE | 2019-03-14 15:01 | ED Physician Documentation ---
History of Present Illness - Stated complaint Stated Complaint: FEMALE - Chief complaint Chief Complaint: UTI - History obtained from History obtained from: Patient - History of Present Illness Timing: Today Pain level max: 5 Pain level now: 4 - Additonal information Additional information: 38-year-old female states she is having bladder spasms. States that this is typical for her after she passes a kidney stone. States that normally resolves with Pyridium. No fevers. No vomiting. No diarrhea. No vaginal bleeding or discharge. 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 HEENT: Tonsil/Adenoidectomy - Present Medications Home Medications: Ambulatory Orders Medication Instructions Recorded Confirmed HYDROcod/ACETAM 5/325 [[place] 5/325] 1 tab PO TID PRN 08/17/15 11/16/17 Diazepam [Valium] 10 mg BID PRN 07/02/18 07/02/18 Cetirizine [ZyrTEC] 10 mg PO DAILY #15 tablet 01/04/19 Ondansetron Odt [Zofran] 4 mg TL Q6H PRN #10 tablet 01/04/19 Meclizine HCl [Motion Sickness 25 mg PO Q6HR PRN #20 tablet 01/17/19 Relief] Phenazopyridine HCl [Pyridium] 200 mg PO TID PRN #6 tablet 03/14/19 - Allergies Allergies/Adverse Reactions: Allergies Allergy/AdvReac Type Severity Reaction Status Date / Time levofloxacin [From Levaquin] Allergy Unknown Verified 03/14/19 13:05 morphine Allergy Unknown Verified 03/14/19 13:05 doxycycline AdvReac Severe Anaphylaxis Verified 03/14/19 13:05 - Social History Does the pt smoke?: No Smoking Status: Never smoker Does the pt drink ETOH?: No Does the pt have substance abuse?: No - Immunizations Immunizations are current?: Yes - POLST Patient has POLST: No PD ED PE NORMAL - Vitals Vital signs reviewed: Yes - General General: Alert and oriented X 3, No acute distress - HEENT HEENT: Moist mucous membranes, Pharynx benign - Neck Neck: Supple, no meningeal sign - Cardiac Cardiac: RRR - Respiratory Respiratory: No respiratory distress, Clear bilaterally - Abdomen Abdomen: Soft, Non tender, Non distended - Back Back: No CVA TTP - Derm Derm: Warm and dry - Neuro Neuro: Alert and oriented X 3 Results - Vitals Vitals: Vital Signs - 24 hr 03/14/19 13:02 Temperature 36.3 C L Heart Rate 69 Respiratory 18 Rate Blood Pressure 104/63 O2 Saturation 98 Oxygen O2 Source Room air - Labs Labs: Laboratory Tests 03/14/19 13:07 Urine Color YELLOW Urine Clarity CLEAR Urine pH 6.5 Ur Specific [place] 1.010 Urine Protein NEGATIVE Urine Glucose (UA) NEGATIVE Urine Ketones NEGATIVE Urine Occult Blood SMALL H Urine Nitrite NEGATIVE Urine Bilirubin NEGATIVE Urine Urobilinogen 0.2 (NORMAL) Ur Leukocyte Esterase NEGATIVE Urine RBC 0-5 Urine WBC 0-3 Ur Squamous Epith Cells FEW Squamous Urine Bacteria None Seen Urine Mucus Few Strands Ur Microscopic Review INDICATED Urine Culture Comments NOT INDICATED PD MEDICAL DECISION MAKING - ED course Complexity details: reviewed results, considered differential, d/w patient ED course: Patient with bladder spasms after what sounds like she passed a kidney stone. Will prescribe Pyridium as this is worked for her in the past. Patient counseled regarding signs and symptoms for which I believe and urgent re- evaluation would be necessary. Patient with good understanding of and agreement to plan and is comfortable going home at this time This document was made in part using voice recognition software. While efforts are made to proofread this document, sound alike and grammatical errors may occur. Departure - Departure Disposition: Home, Self Care Clinical Impression: Bladder spasms Condition: Good Follow-Up: Erum Mercado ARNP [Primary Care Provider] - As Needed Prescriptions: Phenazopyridine HCl [Pyridium] 200 mg PO TID PRN #6 tablet PRN Reason: dysuria Comments: Return if you worsen. Use the Pyridium for the spasms. Follow-up with your doctor for further care.
== END 2019-03-14 15:16 | disposition home or self-care (01) ==
LOC: ED 12:58
DX: N32.89 Other specified disorders of bladder (principal)
CPT/HCPCS: 81001; 99283; A9270; 81003; 87086

== ENCOUNTER 2019-12-21 12:18 | Emergency (ER) | payer MEDICAID ==
[2019-12-21] MEDS ORDERED: KETOROLAC 30 MG/ML VIAL IVP STA (13:09)
[2019-12-21] MEDS ORDERED: diphenhydrAMINE INJ 50 MG/ML VIAL IVP STA ×2 (13:09→14:28)
[2019-12-21] MEDS ORDERED: SODIUM CHLORIDE 0.9% 1,000 ML IV ONE (13:09)
[2019-12-21] MEDS ORDERED: PROMETHAZINE INJ 25 MG in SODIUM CHLORIDE 0.9% 50 ML IV STA (13:09)
--- NOTE | 2019-12-21 13:14 | ED Physician Documentation ---
PD HPI HEADACHE - Stated complaint Stated Complaint: BUTT - Chief complaint Chief Complaint: Neuro - History obtained from History obtained from: Patient, Family - History of Present Illness Timing - onset: Last night Timing - onset during: Rest Timing - duration: Days (1) Timing - details: Gradual onset Pain level max: 8 Pain level now: 8 Location: Global Quality: Throbbing, Aching. No: Thunderclap, Stabbing, Tightness, Like head is exploding Associated symptoms: Nausea. No: Fever, Stiff neck, Vomiting, Weakness, Numbness, Syncope, Seizure, Eye pain, Vision changes Improved by: Rest, Dark room Worsened by: Light, Noise Contributing factors: No: Anticoagulated, Possible carbon monoxide, Hypertension, Recent illness, Trauma Similar symptoms before: Diagnosis (migraines) Recently seen: Not recently seen Review of Systems Ten Systems: 10 systems reviewed and negative Constitutional: denies: Fever, Chills Eyes: reports: Photophobia Nose: denies: Rhinorrhea / runny nose, Congestion Respiratory: denies: Cough GI: denies: Nausea, Vomiting, Diarrhea : denies: Dysuria, Now EGA Skin: denies: Rash Musculoskeletal: denies: Neck pain, Back pain Neurologic: denies: Focal weakness, Numbness, Confused, Altered mental status, Head injury, LOC PD PAST MEDICAL HISTORY - Past Medical History Cardiovascular: None Respiratory: Asthma Neuro: Migraines Endocrine/Autoimmune: None GI: None 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 : Kidney stones HEENT: None Psych: None Musculoskeletal: Chronic back pain Derm: None Other Past Medical History: Kidney Stones, Chroinic back pain - Past Surgical History 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, 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 HEENT: Tonsil/Adenoidectomy - Present Medications Home Medications: Ambulatory Orders Medication Instructions Recorded Confirmed HYDROcod/ACETAM 5/325 [[place] 5/325] 1 tab PO TID PRN 08/17/15 11/16/17 Diazepam [Valium] 10 mg BID PRN 07/02/18 07/02/18 Cetirizine [ZyrTEC] 10 mg PO DAILY #15 tablet 01/04/19 Ondansetron Odt [Zofran] 4 mg TL Q6H PRN #10 tablet 01/04/19 Meclizine HCl [Motion Sickness 25 mg PO Q6HR PRN #20 tablet 01/17/19 Relief] Phenazopyridine HCl [Pyridium] 200 mg PO TID PRN #6 tablet 03/14/19 - Allergies Allergies/Adverse Reactions: Allergies Allergy/AdvReac Type Severity Reaction Status Date / Time levofloxacin [From Levaquin] Allergy Unknown Verified 12/21/19 12:27 morphine Allergy Unknown Verified 12/21/19 12:27 doxycycline AdvReac Severe Anaphylaxis Verified 12/21/19 12:27 - Social History Does the pt smoke?: No Smoking Status: Never smoker Does the pt drink ETOH?: No Does the pt have substance abuse?: No - Immunizations Immunizations are current?: Yes - POLST Patient has POLST: No PD ED PE NORMAL - Vitals Vital signs reviewed: Yes - General General: Alert and oriented X 3, No acute distress, Well developed/nourished, Other (hoodie over her face) - HEENT HEENT: Atraumatic, PERRL, EOMI, Ears normal, Moist mucous membranes, Pharynx benign - Neck Neck: Supple, no meningeal sign, No adenopathy - Cardiac Cardiac: RRR - Respiratory Respiratory: No respiratory distress, Clear bilaterally - Abdomen Abdomen: Soft, Non tender, Non distended - Back Back: No spinal TTP - Derm Derm: Warm and dry - Extremities Extremities: No edema - Neuro Neuro: Alert and oriented X 3, paraffiner 2-12 intact, No motor deficit, No sensory deficit, Normal speech Eye Opening: Spontaneous Motor: Obeys Commands Verbal: Oriented GCS Score: 15 - Psych Psych: Normal mood, Normal affect Results - Vitals Vitals: Vital Signs - 24 hr 12/21/19 12/21/19 12/21/19 12:27 14:23 15:40 Temperature 36.5 C 36.7 C 36.8 C Heart Rate 95 73 81 Respiratory 14 20 16 Rate Blood Pressure 117/75 106/70 104/69 O2 Saturation 98 100 98 Oxygen O2 Source Room air PD MEDICAL DECISION MAKING - ED course Complexity details: reviewed old records, re-evaluated patient, considered differential, d/w patient, d/w family ED course: Patient with her usual migraine headache. Feels better after Toradol, Benadryl, Phenergan, dexamethasone and IV fluids. Headache resolved. Requests go home at this time. No evidence of subarachnoid hemorrhage. No evidence of tumor or mass. Patient counseled regarding signs and symptoms for which I believe and urgent re-evaluation would be necessary. Patient with good understanding of and agreement to plan and is comfortable going home at this time This document was made in part using voice recognition software. While efforts are made to proofread this document, sound alike and grammatical errors may occur. Departure - Departure Disposition: 01 Home, Self Care Clinical Impression: Migraine Qualifiers: Migraine type: unspecified Status migrainosus presence: without status m igrainosus Intractability: not intractable Qualified Code(s): G43.909 - Migraine, unspecified, not intractable, without status migrainosus Condition: Good Instructions: ED Headache Migraine Follow-Up: YULI AMES ARNP [Primary Care Provider] - Within 1 week Comments: Return if you worsen. Do not drive today. Go home and rest. Discharge Date/Time: 12/21/19 15:51
[2019-12-21] MEDS ORDERED: DEXAMETHASONE 10 MG/ML VIAL IVP STA (14:28)
[2019-12-21] MEDS ORDERED: ONDANSETRON 4 MG/2 ML VIAL IVP STA (14:28)
[2019-12-21 15:41] VITALS: BP 104/69
== END 2019-12-21 15:51 | disposition home or self-care (01) ==
LOC: ED 12:18
DX: G43.909 Migraine, unspecified, not intractable, without status migrainosus (principal)
CPT/HCPCS: 96365; 96366; 96375; 99284; 99285; J1200; J7040